=== PATIENT | female | born 1995 | race Caucasian/White ===

== ENCOUNTER 2023-10-12 17:13 | Emergency (ER) | payer OTHER ==
[2023-10-12 17:28] VITALS: O2SAT 100
--- NOTE | 2023-10-12 17:42 | ED Physician Documentation ---
History of Present Illness - Stated complaint Stated Complaint: LT ARM PX,BODY ACHES - Chief complaint Chief Complaint: Ext Problem - History obtained from History obtained from: Patient - Additonal information Additional information: The patient comes to the emergency department chief complaint of burning pain and numbness from her mid forearm flexor surface all the way into her hand on the left. She states has been going on about 3 days and seems to be getting worse. She cannot identify anything that seems to have caused it. She has not been using her elbow more than usual recently. She denies holding anything on a regular basis that is pressing on her left mid forearm. No working out and doing curls. She denies any wrist pain. She does not type frequently. Nothing seems to make it better or worse. She does note that the discomfort is keeping her up at night. It seems to be better in the morning. PD PAST MEDICAL HISTORY - Past Medical History Past Medical History: No Cardiovascular: None Respiratory: None Neuro: None Endocrine/Autoimmune: None GI: None STEWARD/STEWARDESS BANQUET: None : None HEENT: None Psych: None Musculoskeletal: None Derm: None - Past Surgical History Past Surgical History: No - Present Medications Home Medications: Ambulatory Orders Medication Instructions Recorded Confirmed predniSONE [Deltasone] 10 mg PO [id number] #42 tab 10/12/23 - Allergies Allergies/Adverse Reactions: Allergies Allergy/AdvReac Type Severity Reaction Status Date / Time cefuroxime [From Ceftin] AdvReac Unknown Verified 10/12/23 17:21 - Social History Does the pt smoke?: No Smoking Status: Never smoker Does the pt drink ETOH?: No Does the pt have substance abuse?: No - Immunizations Immunizations are current?: Yes - POLST Patient has POLST: No PD ED PE NORMAL - Vitals Vital signs reviewed: Yes - General General: Alert and oriented X 3, No acute distress, Well developed/nourished - HEENT HEENT: Atraumatic, EOMI, Moist mucous membranes - Neck Neck: Supple, no meningeal sign - Cardiac Cardiac: Strong equal pulses - Respiratory Respiratory: No respiratory distress - Derm Derm: Normal color, Warm and dry, No rash - Extremities Extremities: No deformity, No edema, Other (Some point tenderness of the flexor musculature in the patient's left forearm. No mass.) - Neuro Neuro: No motor deficit, No sensory deficit, Other (Alert, grossly intact) - Psych Psych: Normal mood, Normal affect Results - Vitals Vitals: Vital Signs - 24 hr 10/12/23 17:16 Temperature 37.0 C Heart Rate 88 Respiratory 16 Rate Blood Pressure 118/68 O2 Saturation 100 Oxygen O2 Source Room air PD Medical Decision Making - ED course Complexity details: considered differential, d/w patient ED course: I discussed with the patient that her symptoms sound most consistent with a nerve compression on the order of carpal tunnel, but originating higher up. I am not exactly sure what is causing this. The patient states she breast-feeds but that her child sits upright and does not lay its head on her forearm. She has not been doing any physical activity to cause this. At this point in time, I have offered her a prescription for prednisone and have also advised that she may take ibuprofen if she wishes. We discussed stretching the flexor musculature of the forearm. We have discussed follow-up if the symptoms do not resolve on their own in the next couple of weeks. 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 This is one of the 3 nerves that gives sensation and function to your hand. Although it is not clear exactly why you have developed this, the symptoms are very much indicative of this including the deep aching, burning pain and numbness from your forearm to your hand, the discomfort that keeps you up at night, and location. In general, with removal of pressure and inflammati on by stretching and taking anti-inflammatories, such as ibuprofen or steroids, the symptoms usually will resolve on their own. If they continue for more than the next few weeks, you should see your primary doctor for further evaluation. A prescription for the steroid has been electronically transmitted to the [facility] pharmacy in [place]. Please pick this up this evening. You may take [id number] ibuprofen, which is safe for breast-feeding, as well.
[2023-10-12 18:10] VITALS: BP 118/78
== END 2023-10-12 17:59 | disposition home or self-care (01) ==
LOC: ED 17:13
DX: G56.02 Carpal tunnel syndrome, left upper limb (principal)
CPT/HCPCS: 99282; 99283